=== PATIENT | male | born 1990 | race African-American/Black ===

== ENCOUNTER 2018-10-14 18:29 | Emergency (ER) | payer MEDICAID ==
[~2018-10-14] VITALS: Ht 188 cm; Wt 72.7 kg
[2018-10-14] MEDS ORDERED: LORazepam 2 MG TABLET PO ONE (19:15)
[2018-10-14] MEDS ORDERED: OLANZapine 5 MG TABLET PO ONE (19:15)
[2018-10-14 19:32] VITALS: BP 126/69
[2018-10-14 19:45] LABS: AMPHET/METH SCREEN,URINE POSITIVE (NEGATIVE); BARBITURATE SCREEN, URINE NEGATIVE (NEGATIVE); BENZODIAZEPINES SCREEN,URINE NEGATIVE (NEGATIVE); CANNABINOID SCREEN,URINE NEGATIVE (NEGATIVE); COCAINE SCREEN,URINE NEGATIVE (NEGATIVE); METHADONE SCREEN, URINE NEGATIVE (NEGATIVE); OPIATE SCREEN,URINE NEGATIVE (NEGATIVE); PHENCYCLIDINE SCREEN,URINE NEGATIVE (NEGATIVE)
== END 2018-10-14 20:16 | disposition home or self-care (01) ==
LOC: EMS 18:35
DX: F15.10 Other stimulant abuse, uncomplicated (principal); F25.9 Schizoaffective disorder, unspecified; F17.210 Nicotine dependence, cigarettes, uncomplicated
CPT/HCPCS: 99406

== ENCOUNTER 2018-10-14 22:16 | Emergency (ER) | payer MEDICAID ==
[~2018-10-14] VITALS: Ht 188 cm; Wt 65.9 kg
[2018-10-14 23:01] VITALS: BP 145/91
== END 2018-10-15 00:58 | disposition home or self-care (01) ==
LOC: EMS 22:17
DX: F20.9 Schizophrenia, unspecified (principal); F15.90 Other stimulant use, unspecified, uncomplicated; F17.210 Nicotine dependence, cigarettes, uncomplicated; Z76.0 Encounter for issue of repeat prescription

== ENCOUNTER 2018-10-24 15:32 | Emergency (ER) | payer MEDICAID ==
[~2018-10-24] VITALS: Ht 190.5 cm; Wt 68.2 kg
[2018-10-24 16:14] VITALS: BP 125/68
== END 2018-10-24 16:20 | disposition left against medical advice (07) ==
LOC: EMS 15:33
DX: F15.10 Other stimulant abuse, uncomplicated (principal); F17.210 Nicotine dependence, cigarettes, uncomplicated; R20.0 Anesthesia of skin
CPT/HCPCS: 93005

== ENCOUNTER 2018-12-30 17:09 | Emergency (ER) | payer MEDICAID ==
[~2018-12-30] VITALS: Ht 182.9 cm; Wt 72.7 kg
[2018-12-30 19:22] VITALS: BP 145/92
== END 2018-12-30 20:14 | disposition left against medical advice (07) ==
LOC: EMS 17:13
DX: R45.1 Restlessness and agitation (principal); F17.210 Nicotine dependence, cigarettes, uncomplicated; F19.90 Other psychoactive substance use, unspecified, uncomplicated

== ENCOUNTER 2021-09-28 10:55 | Inpatient (IN) | payer MEDICAID, OTHER ==
[~2021-09-28] VITALS: Ht 182.9 cm; Wt 80.4 kg
[2021-09-28 11:37] LABS: COVID AG,FIA SOURCE NASOPHARYNGEAL
[2021-09-28 11:42] LABS: BASOPHILS % (AUTO) 0.8 % (0.0-2.0); EOSINOPHILS % (AUTO) 0.5 % (1.0-6.0); HEMATOCRIT 37.8 % (41-53); HEMOGLOBIN 13.3 g/dL (13.5-17.5); LYMPHOCYTES # (AUTO) 1.6 K/uL (1.0-4.8); LYMPHOCYTES % (AUTO) 36.6 % (22.0-44.0); MEAN CORPUSCULAR HEMOGLOBIN 30.2 pg (26.0-34.0); MEAN CORPUSCULAR HGB CONC 35.1 G/dL (31.0-37.0); MEAN CORPUSCULAR VOLUME 86 fL (80-100); MONOCYTES # (AUTO) 0.6 K/uL (0.1-1.0); MONOCYTES % (AUTO) 13.6 % (2.0-9.0); NEUTROPHILS # (AUTO) 2.1 K/uL (1.8-7.7); NEUTROPHILS % (AUTO) 48.5 % (40.0-70.0); PLATELET COUNT (AUTO) 265 K/uL (150-450)
[2021-09-28 11:57] LABS: ANION GAP 10 mmol/L (8-16); CALCIUM, TOTAL 8.9 mg/dL (8.8-10.5); CARBON DIOXIDE 27 mmol/L (22-29); CHLORIDE 101 mmol/L (98-107); CREATININE 0.95 mg/dL (0.60-1.30); GLOMERULAR FILTR. RATE CALC > 60 mL/min (>60); GLUCOSE,RANDOM 91 mg/dL (70-110); POTASSIUM 3.5 mmol/L (3.5-5.1); SODIUM SERUM 138 mmol/L (136-145); UREA NITROGEN, BLOOD 17 mg/dL (7-18)
[2021-09-28 12:02] LABS: ALANINE AMINOTRANSFERASE 28 U/L (12-78); ALBUMIN 3.6 g/dL (3.4-5.0); ALKALINE PHOSPHATASE 86 U/L (46-116); ASPARTATE AMINOTRANSFERASE 28 U/L (15-37); BILIRUBIN,TOTAL 0.6 mg/dL (0.1-1.0); TOTAL PROTEIN, SERUM 7.9 g/dL (6.4-8.2)
[2021-09-28] MEDS ORDERED: LORazepam 2 MG/ML VIAL IM ONE (12:15)
[2021-09-28] MEDS ORDERED: HALOPERIDOL LACTATE 5 MG/ML VIAL IM ONE (12:15)
[2021-09-28] MEDS ORDERED: DiphenhydrAMINE HCL 50 MG/ML VIAL IM ONE (12:15)
[2021-09-28] MEDS ORDERED: ZOLPIDEM TARTRATE 10 MG TABLET PO PRN (13:00)
[2021-09-28 18:00] VITALS: BP 138/94
[2021-09-28] MEDS ORDERED: DOCUSATE SODIUM 100 MG CAPSULE PO PRN (20:30)
[2021-09-28] MEDS ORDERED: PETROLATUM,WHITE 28 GM JELLY TP PRN (20:30)
[2021-09-28] MEDS ORDERED: ALBUTEROL SULFATE HFA 90 MCG/PUFF 8 GM INHALER IH PRN (20:30)
[2021-09-28] MEDS ORDERED: BENZOCAINE/MENTHOL LOZENGE PO PRN (20:30)
[2021-09-28] MEDS ORDERED: CloNIDine HCL 0.1 MG TABLET PO PRN (20:30)
[2021-09-28] MEDS ORDERED: ONDANSETRON HCL 4 MG TABLET PO PRN (20:30)
[2021-09-28] MEDS ORDERED: OMEPRAZOLE 20 MG CAPSULE PO PRN (20:30)
[2021-09-28] MEDS ORDERED: LOPERAMIDE HCL 2 MG CAPSULE PO PRN (20:30)
[2021-09-28] MEDS ORDERED: ACETAMINOPHEN 325 MG TABLET PO PRN (20:30)
[2021-09-28] MEDS ORDERED: MAGNESIUM HYDROXIDE SUSPENSION 30 ML UDCUP PO PRN (20:30)
[2021-09-28] MEDS ORDERED: BACITRACIN 28 GM OINTMENT TP PRN (20:30)
[2021-09-28] MEDS ORDERED: MAG HYDROX/AL HYDROX/SIMETH ES 30 ML SUSPENSION UDCUP PO PRN (20:30)
[2021-09-28] MEDS ORDERED: IBUPROFEN 600 MG TABLET PO PRN (20:30)
[2021-09-29 08:15] VITALS: BP 123/79
[2021-09-29] MEDS: LORazepam 2 MG TABLET PO PRN (08:49)
[2021-09-29] MEDS: HALOPERIDOL 5 MG TABLET PO PRN (08:50)
[2021-09-29] MEDS: RisperiDONE 3 MG TABLET PO SCH (16:20)
[2021-09-29 18:43] VITALS: BP 115/70
[2021-09-30 08:21] VITALS: BP 144/68
[2021-09-30] MEDS: LORazepam 2 MG TABLET PO PRN ×2 (08:45→16:51)
[2021-09-30] MEDS: RisperiDONE 3 MG TABLET PO SCH ×2 (08:45→16:36)
[2021-09-30] MEDS: HALOPERIDOL 5 MG TABLET PO PRN (15:37)
[2021-09-30 16:29] VITALS: BP 124/73
[2021-10-01] MEDS: LORazepam 2 MG TABLET PO PRN ×2 (10:23→16:57)
[2021-10-01] MEDS: RisperiDONE 3 MG TABLET PO SCH ×2 (10:23→16:57)
[2021-10-01] MEDS: HALOPERIDOL 5 MG TABLET PO PRN (15:49)
[2021-10-01 16:51] VITALS: BP 129/84
[2021-10-02] MEDS: RisperiDONE 3 MG TABLET PO SCH ×2 (08:22→16:08)
[2021-10-02 09:41] VITALS: BP 114/73
[2021-10-02] MEDS: HALOPERIDOL 5 MG TABLET PO PRN (15:42)
[2021-10-02 16:57] VITALS: BP 114/68
[2021-10-02] MEDS: LORazepam 2 MG TABLET PO PRN ×2 (16:59→22:37)
[2021-10-03] MEDS: LORazepam 2 MG TABLET PO PRN (08:42)
[2021-10-03 08:51] VITALS: BP 119/68
[2021-10-03] MEDS: RisperiDONE 3 MG TABLET PO SCH ×2 (09:00→17:00)
[2021-10-03] MEDS ORDERED: DiphenhydrAMINE HCL 50 MG/ML VIAL IM ONE (15:00)
[2021-10-03] MEDS ORDERED: HALOPERIDOL LACTATE 5 MG/ML VIAL IM ONE (15:00)
[2021-10-03] MEDS ORDERED: LORazepam 2 MG/ML VIAL IM ONE (15:00)
[2021-10-03] MEDS: NICOTINE POLACRILEX 2 MG GUM CHEW PRN (16:37)
[2021-10-03 16:52] VITALS: BP 120/80
[2021-10-04] MEDS: RisperiDONE 3 MG TABLET PO SCH ×2 (08:06→08:10)
[2021-10-04] MEDS: LORazepam 2 MG TABLET PO PRN (08:06)
[2021-10-04] MEDS: DIVALPROEX SODIUM 500 MG DR TABLET PO SCH ×2 (08:06→08:10)
[2021-10-04 08:10] VITALS: BP 120/78
[2021-10-04] MEDS: RisperiDONE CONC 3 MG/3 ML SOLUTION ORAL.SYG PO SCH ×2 (09:17→16:43)
[2021-10-04] MEDS: VALPROIC ACID 250 MG/5 ML SOLUTION UDCUP PO SCH ×2 (09:18→20:05)
[2021-10-04] MEDS: NICOTINE POLACRILEX 2 MG GUM CHEW PRN (13:49)
[2021-10-04] MEDS ORDERED: LORazepam 2 MG/ML VIAL IM ONE (14:15)
[2021-10-04] MEDS ORDERED: DiphenhydrAMINE HCL 50 MG/ML VIAL IM ONE (14:15)
[2021-10-04] MEDS ORDERED: HALOPERIDOL LACTATE 5 MG/ML VIAL IM ONE (14:15)
[2021-10-04 16:45] VITALS: BP 115/71
[2021-10-05 08:21] VITALS: BP 126/79
[2021-10-05] MEDS: LORazepam 2 MG TABLET PO PRN (08:52)
[2021-10-05] MEDS: HALOPERIDOL 5 MG TABLET PO PRN (08:52)
[2021-10-05] MEDS: RisperiDONE CONC 3 MG/3 ML SOLUTION ORAL.SYG PO SCH ×2 (08:52→16:39)
[2021-10-05] MEDS: VALPROIC ACID 250 MG/5 ML SOLUTION UDCUP PO SCH ×2 (09:15→20:48)
[2021-10-05 16:29] VITALS: BP 115/64
[2021-10-05] MEDS: NICOTINE POLACRILEX 2 MG GUM CHEW PRN (16:40)
[2021-10-06] MEDS: RisperiDONE CONC 3 MG/3 ML SOLUTION ORAL.SYG PO SCH ×2 (08:53→16:12)
[2021-10-06] MEDS: VALPROIC ACID 250 MG/5 ML SOLUTION UDCUP PO SCH ×2 (08:54→20:07)
[2021-10-06] MEDS: NICOTINE POLACRILEX 2 MG GUM CHEW PRN (08:55)
[2021-10-06] MEDS: LORazepam 2 MG TABLET PO PRN ×2 (08:55→18:38)
[2021-10-06 09:23] VITALS: BP 119/72
[2021-10-06 13:39] VITALS: BP 119/72
[2021-10-06 16:34] VITALS: BP 115/80
[2021-10-07 08:27] VITALS: BP 114/65
[2021-10-07] MEDS: LORazepam 2 MG TABLET PO PRN (09:32)
[2021-10-07] MEDS: NICOTINE POLACRILEX 2 MG GUM CHEW PRN (09:32)
[2021-10-07] MEDS: VALPROIC ACID 250 MG/5 ML SOLUTION UDCUP PO SCH ×2 (09:32→20:08)
[2021-10-07] MEDS: RisperiDONE CONC 3 MG/3 ML SOLUTION ORAL.SYG PO SCH ×2 (09:32→16:23)
[2021-10-07 16:37] VITALS: BP 145/89
[2021-10-08 08:39] VITALS: BP 152/74
[2021-10-08] MEDS: NICOTINE POLACRILEX 2 MG GUM CHEW PRN ×2 (09:18→18:33)
[2021-10-08] MEDS: VALPROIC ACID 250 MG/5 ML SOLUTION UDCUP PO SCH ×2 (09:19→20:21)
[2021-10-08] MEDS: LORazepam 2 MG TABLET PO PRN (09:19)
[2021-10-08] MEDS: RisperiDONE CONC 3 MG/3 ML SOLUTION ORAL.SYG PO SCH ×2 (09:19→16:37)
[2021-10-08 16:34] VITALS: BP 109/78
[2021-10-08 17:22] LABS: COVID AG,FIA SOURCE NASAL SWAB
[2021-10-09] MEDS: LORazepam 2 MG TABLET PO PRN (08:09)
[2021-10-09] MEDS: NICOTINE POLACRILEX 2 MG GUM CHEW PRN ×2 (08:09→16:38)
[2021-10-09] MEDS: RisperiDONE CONC 3 MG/3 ML SOLUTION ORAL.SYG PO SCH ×2 (08:11→16:38)
[2021-10-09] MEDS: VALPROIC ACID 250 MG/5 ML SOLUTION UDCUP PO SCH ×2 (08:11→20:50)
[2021-10-09 08:23] VITALS: BP 118/94
[2021-10-09 16:19] VITALS: BP 131/76
[2021-10-10 08:18] VITALS: BP 113/75
[2021-10-10] MEDS: VALPROIC ACID 250 MG/5 ML SOLUTION UDCUP PO SCH ×2 (10:45→20:05)
[2021-10-10] MEDS: RisperiDONE CONC 3 MG/3 ML SOLUTION ORAL.SYG PO SCH ×2 (10:46→16:36)
[2021-10-10 16:18] VITALS: BP 116/68
[2021-10-10] MEDS: NICOTINE POLACRILEX 2 MG GUM CHEW PRN (16:36)
[2021-10-11 08:00] VITALS: BP 117/59
[2021-10-11] MEDS: RisperiDONE CONC 3 MG/3 ML SOLUTION ORAL.SYG PO SCH ×2 (08:02→16:44)
[2021-10-11] MEDS: VALPROIC ACID 250 MG/5 ML SOLUTION UDCUP PO SCH ×2 (08:02→20:11)
[2021-10-11 16:52] VITALS: BP 121/79
[2021-10-12 08:25] VITALS: BP 138/79
[2021-10-12] MEDS: RisperiDONE CONC 3 MG/3 ML SOLUTION ORAL.SYG PO SCH ×2 (09:27→16:35)
[2021-10-12] MEDS: VALPROIC ACID 250 MG/5 ML SOLUTION UDCUP PO SCH ×2 (09:27→20:24)
[2021-10-12] MEDS: NICOTINE POLACRILEX 2 MG GUM CHEW PRN (13:19)
[2021-10-13] MEDS: HALOPERIDOL 5 MG TABLET PO PRN (08:13)
[2021-10-13] MEDS: VALPROIC ACID 250 MG/5 ML SOLUTION UDCUP PO SCH ×2 (08:13→20:13)
[2021-10-13] MEDS: RisperiDONE CONC 3 MG/3 ML SOLUTION ORAL.SYG PO SCH ×2 (08:13→15:57)
[2021-10-13 09:00] VITALS: BP 116/70
[2021-10-13] MEDS: NICOTINE POLACRILEX 2 MG GUM CHEW PRN (14:10)
[2021-10-14 08:13] VITALS: BP 103/68
[2021-10-14] MEDS: NICOTINE POLACRILEX 2 MG GUM CHEW PRN ×2 (10:34→16:40)
[2021-10-14] MEDS: VALPROIC ACID 250 MG/5 ML SOLUTION UDCUP PO SCH ×2 (10:34→20:58)
[2021-10-14] MEDS: RisperiDONE CONC 3 MG/3 ML SOLUTION ORAL.SYG PO SCH ×2 (10:34→16:39)
[2021-10-14 16:51] VITALS: BP 125/70
[2021-10-15 07:11] LABS: COVID AG,FIA SOURCE NASAL SWAB
[2021-10-15 08:00] VITALS: BP 110/65
[2021-10-15] MEDS: RisperiDONE CONC 3 MG/3 ML SOLUTION ORAL.SYG PO SCH ×2 (08:46→16:33)
[2021-10-15] MEDS: NICOTINE POLACRILEX 2 MG GUM CHEW PRN (08:46)
[2021-10-15] MEDS: VALPROIC ACID 250 MG/5 ML SOLUTION UDCUP PO SCH ×2 (08:46→20:57)
[2021-10-15 16:47] VITALS: BP 149/98
[2021-10-16 08:22] VITALS: BP 111/71
[2021-10-16] MEDS: NICOTINE POLACRILEX 2 MG GUM CHEW PRN (10:44)
[2021-10-16] MEDS: VALPROIC ACID 250 MG/5 ML SOLUTION UDCUP PO SCH ×2 (10:44→20:08)
[2021-10-16] MEDS: RisperiDONE CONC 3 MG/3 ML SOLUTION ORAL.SYG PO SCH ×2 (10:44→16:37)
[2021-10-16 16:11] VITALS: BP 114/74
[2021-10-17 08:59] VITALS: BP 105/66
[2021-10-17] MEDS: RisperiDONE CONC 3 MG/3 ML SOLUTION ORAL.SYG PO SCH ×2 (10:56→16:26)
[2021-10-17] MEDS: VALPROIC ACID 250 MG/5 ML SOLUTION UDCUP PO SCH ×2 (10:56→20:14)
[2021-10-17] MEDS: NICOTINE POLACRILEX 2 MG GUM CHEW PRN ×2 (12:56→20:15)
[2021-10-17 16:37] VITALS: BP 121/66
[2021-10-17 16:38] VITALS: BP 121/80
[2021-10-18 08:16] VITALS: BP 113/61
[2021-10-18] MEDS: RisperiDONE CONC 3 MG/3 ML SOLUTION ORAL.SYG PO SCH ×2 (09:32→16:09)
[2021-10-18] MEDS: VALPROIC ACID 250 MG/5 ML SOLUTION UDCUP PO SCH ×2 (09:32→20:11)
[2021-10-18] MEDS: NICOTINE POLACRILEX 2 MG GUM CHEW PRN (09:36)
[2021-10-18 16:08] VITALS: BP 101/64
[2021-10-19] MEDS: VALPROIC ACID 250 MG/5 ML SOLUTION UDCUP PO SCH ×2 (08:06→20:14)
[2021-10-19] MEDS: RisperiDONE CONC 3 MG/3 ML SOLUTION ORAL.SYG PO SCH ×2 (08:06→16:07)
[2021-10-19] MEDS: NICOTINE POLACRILEX 2 MG GUM CHEW PRN (08:12)
[2021-10-19 08:24] VITALS: BP 107/64
[2021-10-19] MEDS ORDERED: TUBERCULIN, PURIFIED PROTEIN DERIVATIVE 5 TU/0.1 ML SYRINGE ID ONE (15:15)
[2021-10-19 16:08] VITALS: BP 130/74
[2021-10-19] MEDS: HALOPERIDOL 5 MG TABLET PO PRN (16:36)
[2021-10-19] MEDS: LORazepam 2 MG TABLET PO PRN (16:36)
[2021-10-20] MEDS: NICOTINE POLACRILEX 2 MG GUM CHEW PRN (07:54)
[2021-10-20] MEDS: VALPROIC ACID 250 MG/5 ML SOLUTION UDCUP PO SCH ×2 (07:54→21:07)
[2021-10-20] MEDS: RisperiDONE CONC 3 MG/3 ML SOLUTION ORAL.SYG PO SCH ×2 (07:54→16:08)
[2021-10-20 08:15] VITALS: BP 117/67
[2021-10-20 16:08] VITALS: BP 124/82
[2021-10-21] MEDS: NICOTINE POLACRILEX 2 MG GUM CHEW PRN (09:59)
[2021-10-21] MEDS: VALPROIC ACID 250 MG/5 ML SOLUTION UDCUP PO SCH ×2 (10:00→20:13)
[2021-10-21] MEDS: RisperiDONE CONC 3 MG/3 ML SOLUTION ORAL.SYG PO SCH ×2 (10:00→16:39)
[2021-10-21 16:32] VITALS: BP 135/87
[2021-10-22 04:04] LABS: COVID AG,FIA SOURCE NASAL SWAB
[2021-10-22 08:00] VITALS: BP 119/79
[2021-10-22] MEDS: RisperiDONE CONC 3 MG/3 ML SOLUTION ORAL.SYG PO SCH ×2 (08:28→16:35)
[2021-10-22] MEDS: VALPROIC ACID 250 MG/5 ML SOLUTION UDCUP PO SCH ×2 (08:28→20:10)
[2021-10-22] MEDS: NICOTINE POLACRILEX 2 MG GUM CHEW PRN ×2 (08:30→16:35)
[2021-10-22 16:00] VITALS: BP 111/73
[2021-10-23 08:22] VITALS: BP 112/63
[2021-10-23] MEDS: RisperiDONE CONC 3 MG/3 ML SOLUTION ORAL.SYG PO SCH ×2 (09:51→16:23)
[2021-10-23] MEDS: VALPROIC ACID 250 MG/5 ML SOLUTION UDCUP PO SCH ×2 (09:52→20:20)
[2021-10-23] MEDS: NICOTINE POLACRILEX 2 MG GUM CHEW PRN ×2 (09:52→16:26)
[2021-10-23 16:47] VITALS: BP 119/71
[2021-10-24 08:31] VITALS: BP 118/70
[2021-10-24] MEDS: VALPROIC ACID 250 MG/5 ML SOLUTION UDCUP PO SCH ×2 (09:20→20:55)
[2021-10-24] MEDS: RisperiDONE CONC 3 MG/3 ML SOLUTION ORAL.SYG PO SCH ×2 (09:20→16:13)
[2021-10-24] MEDS: NICOTINE POLACRILEX 2 MG GUM CHEW PRN (09:20)
[2021-10-24 16:20] VITALS: BP 129/62
[2021-10-25 08:12] VITALS: BP 105/61
[2021-10-25] MEDS: NICOTINE POLACRILEX 2 MG GUM CHEW PRN (08:37)
[2021-10-25] MEDS: VALPROIC ACID 250 MG/5 ML SOLUTION UDCUP PO SCH ×2 (08:37→20:36)
[2021-10-25] MEDS: RisperiDONE CONC 3 MG/3 ML SOLUTION ORAL.SYG PO SCH ×2 (08:37→16:10)
[2021-10-25] MEDS ORDERED: TUBERCULIN, PURIFIED PROTEIN DERIVATIVE 5 TU/0.1 ML SYRINGE ID ONE (12:30)
[2021-10-25 16:23] VITALS: BP 101/64
[2021-10-26] MEDS: RisperiDONE CONC 3 MG/3 ML SOLUTION ORAL.SYG PO SCH ×2 (08:13→16:16)
[2021-10-26] MEDS: VALPROIC ACID 250 MG/5 ML SOLUTION UDCUP PO SCH ×2 (08:13→20:17)
[2021-10-26] MEDS: NICOTINE POLACRILEX 2 MG GUM CHEW PRN (08:15)
[2021-10-26 09:05] VITALS: BP 109/70
[2021-10-26 16:03] VITALS: BP 104/68
[2021-10-27 08:00] VITALS: BP_SYST 150; BP_DIAS 6; BP_DIAS 65
[2021-10-27] MEDS: VALPROIC ACID 250 MG/5 ML SOLUTION UDCUP PO SCH ×2 (08:50→20:17)
[2021-10-27] MEDS: RisperiDONE CONC 3 MG/3 ML SOLUTION ORAL.SYG PO SCH ×2 (08:51→16:02)
[2021-10-27 16:38] VITALS: BP 119/74
[2021-10-28 08:00] VITALS: BP 107/67
[2021-10-28] MEDS: NICOTINE POLACRILEX 2 MG GUM CHEW PRN (09:39)
[2021-10-28] MEDS: VALPROIC ACID 250 MG/5 ML SOLUTION UDCUP PO SCH ×2 (09:39→20:24)
[2021-10-28] MEDS: RisperiDONE CONC 3 MG/3 ML SOLUTION ORAL.SYG PO SCH ×2 (09:40→16:19)
[2021-10-28 16:38] VITALS: BP 123/66
[2021-10-29 04:23] VITALS: BP 116/70
[2021-10-29 07:04] LABS: COVID AG,FIA SOURCE NASAL SWAB
[2021-10-29 08:03] VITALS: BP 113/71
[2021-10-29] MEDS: RisperiDONE CONC 3 MG/3 ML SOLUTION ORAL.SYG PO SCH ×2 (08:39→16:16)
[2021-10-29] MEDS: VALPROIC ACID 250 MG/5 ML SOLUTION UDCUP PO SCH ×2 (08:39→20:51)
[2021-10-29] MEDS: NICOTINE POLACRILEX 2 MG GUM CHEW PRN (08:40)
[2021-10-29 16:43] VITALS: BP 115/86
[2021-10-30] MEDS: VALPROIC ACID 250 MG/5 ML SOLUTION UDCUP PO SCH ×2 (08:17→20:21)
[2021-10-30] MEDS: RisperiDONE CONC 3 MG/3 ML SOLUTION ORAL.SYG PO SCH ×2 (08:17→16:04)
[2021-10-30] MEDS: NICOTINE POLACRILEX 2 MG GUM CHEW PRN (08:19)
[2021-10-30 09:44] VITALS: BP 109/70
[2021-10-30 16:47] VITALS: BP 103/59
[2021-10-31] MEDS: VALPROIC ACID 250 MG/5 ML SOLUTION UDCUP PO SCH ×2 (08:20→20:46)
[2021-10-31] MEDS: RisperiDONE CONC 3 MG/3 ML SOLUTION ORAL.SYG PO SCH ×2 (08:20→16:40)
[2021-10-31] MEDS: NICOTINE POLACRILEX 2 MG GUM CHEW PRN ×2 (08:22→16:40)
[2021-10-31 08:46] VITALS: BP 128/79
[2021-10-31 16:09] VITALS: BP 102/62
[2021-11-01] MEDS: VALPROIC ACID 250 MG/5 ML SOLUTION UDCUP PO SCH ×2 (08:14→20:28)
[2021-11-01] MEDS: RisperiDONE CONC 3 MG/3 ML SOLUTION ORAL.SYG PO SCH ×2 (08:14→16:41)
[2021-11-01 08:27] VITALS: BP 114/68
[2021-11-01 16:26] VITALS: BP 110/70
[2021-11-01 16:27] VITALS: BP 110/70
[2021-11-01] MEDS: NICOTINE POLACRILEX 2 MG GUM CHEW PRN (16:41)
[2021-11-01 20:27] VITALS: BP 108/72
[2021-11-02 08:16] VITALS: BP 101/66
[2021-11-02] MEDS: VALPROIC ACID 250 MG/5 ML SOLUTION UDCUP PO SCH ×2 (09:30→20:07)
[2021-11-02] MEDS: NICOTINE POLACRILEX 2 MG GUM CHEW PRN ×2 (09:30→16:49)
[2021-11-02] MEDS: RisperiDONE CONC 3 MG/3 ML SOLUTION ORAL.SYG PO SCH ×2 (09:30→16:51)
[2021-11-02 16:09] VITALS: BP 110/69
[2021-11-02 20:35] VITALS: BP 119/72
[2021-11-03 08:16] VITALS: BP 117/75
[2021-11-03] MEDS: VALPROIC ACID 250 MG/5 ML SOLUTION UDCUP PO SCH ×2 (09:55→20:06)
[2021-11-03] MEDS: NICOTINE POLACRILEX 2 MG GUM CHEW PRN (09:56)
[2021-11-03] MEDS: RisperiDONE CONC 3 MG/3 ML SOLUTION ORAL.SYG PO SCH ×2 (09:56→17:00)
[2021-11-03 16:38] VITALS: BP 97/61
[2021-11-03 20:29] VITALS: BP 101/72
[2021-11-04 08:30] VITALS: BP 104/69
[2021-11-04] MEDS: RisperiDONE CONC 3 MG/3 ML SOLUTION ORAL.SYG PO SCH ×2 (09:00→16:59)
[2021-11-04] MEDS: NICOTINE POLACRILEX 2 MG GUM CHEW PRN ×2 (09:00→16:59)
[2021-11-04] MEDS: VALPROIC ACID 250 MG/5 ML SOLUTION UDCUP PO SCH ×2 (09:00→20:29)
[2021-11-04 16:42] VITALS: BP 110/63
[2021-11-05 06:38] LABS: COVID AG,FIA SOURCE NASAL SWAB
[2021-11-05] MEDS: RisperiDONE CONC 3 MG/3 ML SOLUTION ORAL.SYG PO SCH ×2 (08:36→16:52)
[2021-11-05] MEDS: VALPROIC ACID 250 MG/5 ML SOLUTION UDCUP PO SCH ×2 (08:36→20:11)
[2021-11-05] MEDS: NICOTINE POLACRILEX 2 MG GUM CHEW PRN (08:45)
[2021-11-05 16:18] VITALS: BP 111/62
[2021-11-06 08:14] VITALS: BP 115/73
[2021-11-06] MEDS: RisperiDONE CONC 3 MG/3 ML SOLUTION ORAL.SYG PO SCH ×2 (09:01→15:53)
[2021-11-06] MEDS: VALPROIC ACID 250 MG/5 ML SOLUTION UDCUP PO SCH ×2 (09:01→20:23)
[2021-11-06 16:03] VITALS: BP 113/72
[2021-11-07 08:20] VITALS: BP 123/72
[2021-11-07] MEDS: NICOTINE POLACRILEX 2 MG GUM CHEW PRN (09:39)
[2021-11-07] MEDS: RisperiDONE CONC 3 MG/3 ML SOLUTION ORAL.SYG PO SCH ×2 (09:39→16:13)
[2021-11-07] MEDS: VALPROIC ACID 250 MG/5 ML SOLUTION UDCUP PO SCH ×2 (09:39→20:07)
[2021-11-07 16:16] VITALS: BP 126/71
[2021-11-08 08:22] VITALS: BP 116/65
[2021-11-08] MEDS: VALPROIC ACID 250 MG/5 ML SOLUTION UDCUP PO SCH ×2 (08:56→20:36)
[2021-11-08] MEDS: RisperiDONE CONC 3 MG/3 ML SOLUTION ORAL.SYG PO SCH ×2 (08:56→16:04)
[2021-11-08] MEDS: NICOTINE POLACRILEX 2 MG GUM CHEW PRN (09:00)
[2021-11-08 16:32] VITALS: BP 111/63
[2021-11-09] MEDS: VALPROIC ACID 250 MG/5 ML SOLUTION UDCUP PO SCH ×2 (08:06→20:21)
[2021-11-09] MEDS: RisperiDONE CONC 3 MG/3 ML SOLUTION ORAL.SYG PO SCH ×2 (08:06→16:19)
[2021-11-09] MEDS: NICOTINE POLACRILEX 2 MG GUM CHEW PRN (08:06)
[2021-11-09 09:20] VITALS: BP 121/77
[2021-11-09 16:13] VITALS: BP 111/77
[2021-11-10] MEDS: VALPROIC ACID 250 MG/5 ML SOLUTION UDCUP PO SCH ×2 (08:59→20:28)
[2021-11-10] MEDS: RisperiDONE CONC 3 MG/3 ML SOLUTION ORAL.SYG PO SCH ×2 (08:59→16:39)
[2021-11-10] MEDS: NICOTINE POLACRILEX 2 MG GUM CHEW PRN (09:05)
[2021-11-10 09:38] VITALS: BP 125/73
[2021-11-10 16:10] VITALS: BP 111/83
[2021-11-10 20:20] VITALS: BP 115/82
[2021-11-11 08:00] VITALS: BP 125/74
[2021-11-11] MEDS: NICOTINE POLACRILEX 2 MG GUM CHEW PRN ×2 (09:41→16:32)
[2021-11-11] MEDS: VALPROIC ACID 250 MG/5 ML SOLUTION UDCUP PO SCH ×2 (09:41→20:16)
[2021-11-11] MEDS: RisperiDONE CONC 3 MG/3 ML SOLUTION ORAL.SYG PO SCH ×2 (09:42→16:26)
[2021-11-11] MEDS ORDERED: TUBERCULIN, PURIFIED PROTEIN DERIVATIVE 5 TU/0.1 ML SYRINGE ID ONE ×2 (11:45→12:30)
[2021-11-11 16:22] VITALS: BP 113/58
[2021-11-12 08:08] VITALS: BP 135/90
[2021-11-12] MEDS: RisperiDONE CONC 3 MG/3 ML SOLUTION ORAL.SYG PO SCH ×2 (08:11→16:30)
[2021-11-12] MEDS: VALPROIC ACID 250 MG/5 ML SOLUTION UDCUP PO SCH ×2 (08:11→20:26)
[2021-11-12] MEDS: NICOTINE POLACRILEX 2 MG GUM CHEW PRN (08:12)
[2021-11-12 16:18] VITALS: BP 122/66
[2021-11-12 20:30] VITALS: BP 124/69
[2021-11-13 07:54] LABS: COVID AG,FIA SOURCE NASOPHARYNGEAL
[2021-11-13] MEDS: VALPROIC ACID 250 MG/5 ML SOLUTION UDCUP PO SCH ×2 (08:01→20:38)
[2021-11-13] MEDS: NICOTINE POLACRILEX 2 MG GUM CHEW PRN (08:01)
[2021-11-13] MEDS: RisperiDONE CONC 3 MG/3 ML SOLUTION ORAL.SYG PO SCH ×2 (08:01→17:00)
[2021-11-13 09:37] VITALS: BP 122/78
[2021-11-13 16:24] VITALS: BP 121/71
[2021-11-13 20:17] VITALS: BP 124/77
[2021-11-14 08:00] VITALS: BP 125/74
[2021-11-14] MEDS: VALPROIC ACID 250 MG/5 ML SOLUTION UDCUP PO SCH ×2 (09:04→20:06)
[2021-11-14] MEDS: NICOTINE POLACRILEX 2 MG GUM CHEW PRN ×2 (09:04→18:36)
[2021-11-14] MEDS: RisperiDONE CONC 3 MG/3 ML SOLUTION ORAL.SYG PO SCH ×2 (09:04→16:30)
[2021-11-14 16:43] VITALS: BP 119/77
[2021-11-15] MEDS ORDERED: VALP250S23 PO (00:39)
[2021-11-15] MEDS ORDERED: RISP1SOL11 PO (00:39)
[2021-11-15 08:21] VITALS: BP 131/80
[2021-11-15] MEDS: RisperiDONE CONC 3 MG/3 ML SOLUTION ORAL.SYG PO SCH (11:51)
[2021-11-15] MEDS: VALPROIC ACID 250 MG/5 ML SOLUTION UDCUP PO SCH (11:52)
== END 2021-11-15 12:20 | disposition home or self-care (01) | DRG 750 ==
LOC: EMS 11:12 → 3EC 13:00
PROVIDERS: ADMIT Psychiatry & Neurology Psychiatry; ATTEND Psychiatry & Neurology Psychiatry
DX: F20.9 Schizophrenia, unspecified (principal); Z59.00 Homelessness unspecified; F17.210 Nicotine dependence, cigarettes, uncomplicated; F41.9 Anxiety disorder, unspecified; G47.00 Insomnia, unspecified; I10 Essential (primary) hypertension; K21.9 Gastro-esophageal reflux disease without esophagitis; K59.00 Constipation, unspecified; Z20.822 Contact with and (suspected) exposure to COVID-19; F19.10 Other psychoactive substance abuse, uncomplicated; Z71.51 Drug abuse counseling and surveillance of drug abuser
CPT/HCPCS: 80053; 80164; 85025; 87081; 99285; G0480; J1200; J1630; J2060